=== PATIENT | male | born 1955 | race Caucasian/White ===

== ENCOUNTER 2018-03-23 11:47 | Emergency (ER) | payer MEDICAID ==
[~2018-03-23] VITALS: Ht 182.9 cm; Wt 72.6 kg
--- NOTE | 2018-03-23 12:31 | NUR ---
PT WAS EVALUATED BY DR SAINI. PT WAS D/C'd TO HOME. D/C INSTRUCTIONS GIVEN TO THE PT.
[2018-03-23 12:33] VITALS: BP 145/77
== END 2018-03-23 12:41 | disposition home or self-care (01) ==
LOC: ER 11:47
DX: J06.9 Acute upper respiratory infection, unspecified (principal); N40.0 Benign prostatic hyperplasia without lower urinary tract symptoms
CPT/HCPCS: A4663

== ENCOUNTER 2018-05-29 19:01 | Emergency (ER) | payer MEDICAID ==
[~2018-05-29] VITALS: Ht 182.9 cm; Wt 72.6 kg
[2018-05-29] MEDS ORDERED: TAMS-3 PO (19:07)
[2018-05-29] MEDS ORDERED: OMEP20TA20 PO (19:07)
--- NOTE | 2018-05-29 19:10 | NUR ---
Patient ambulated with stable gait. AAOX4. Speaks clear and in complete sentences. No neuro deficits. Patient came with c/o rt shoulder pain x 1 week, with no stated trauma. Respiratory even and unlabored, no cough no sob, chest symmetry. No cardiovascular distress noted. No GI/Gu distress. Patient in bed at lowest position, side rails upx2, call light within reach. Fall precautions implemented per protocol.
[2018-05-29] MEDS ORDERED: OXYCODONE/APAP 5-325 MG TABLET PO ONE (19:30)
[2018-05-29] MEDS ORDERED: OXYCODONE/APAP 5-325 MG TABLET ONE (19:33)
--- NOTE | 2018-05-29 21:01 | NUR ---
Patient discharged to home in stable conditon. Written and verbal after care instructions given. Patient verbalizes understanding of instructions. Patient ambulated withs table gait. Denies any homelessness.
[2018-05-29 21:02] VITALS: BP 135/97
--- NOTE | 2018-05-29 21:02 | NUR ---
Asked patient if he drove here, and he stated he did not.
== END 2018-05-29 21:03 | disposition home or self-care (01) ==
LOC: ER 19:02
DX: M54.12 Radiculopathy, cervical region (principal); M79.621 Pain in right upper arm; R20.2 Paresthesia of skin; K21.9 Gastro-esophageal reflux disease without esophagitis; Z79.899 Other long term (current) drug therapy
CPT/HCPCS: 72125; A4663

== ENCOUNTER 2019-12-26 02:38 | Emergency (ER) | payer MEDICAID, OTHER ==
[~2019-12-26] VITALS: Ht 182.9 cm; Wt 72.6 kg
[~2019-12-26 02:38] MED LIST: OMEP20TA20 PO; TAMS-3 PO
--- NOTE | 2019-12-26 02:52 | NUR ---
at bedside for assessment
[2019-12-26] MEDS ORDERED: TDAP DIPH,PERTUSS,TET VAC/PF 0.5 ML DISP.SYRIN IM ONE ×2 (02:59→03:00)
[2019-12-26] MEDS ORDERED: LET TOPICAL SOLUTION 8 ML UDC ONE (03:14)
[2019-12-26] MEDS ORDERED: LET TOPICAL SOLUTION 8 ML UDC TP ONE (03:15)
[2019-12-26] MEDS ORDERED: LIDOCAINE HCL 2% 20 ML VIAL TP ONE (03:15)
[2019-12-26] MEDS ORDERED: SODIUM BICARBONATE 4.2 % (NEUT) 5 ML VIAL TP ONE (03:15)
[2019-12-26] MEDS ORDERED: NEOMY/BACITRA/POLYMYXIN B OINT UD PACKET TP ONE ×2 (03:45→03:49)
--- NOTE | 2019-12-26 03:49 | NUR ---
natalia needle removed from patient's left index finger by MD Escamilla, puncture wound soaked in peroxide, awaiting repeat x-ray at this time
[2019-12-26] MEDS ORDERED: CEphaleXIN 500 MG CAPSULE ONE (03:57)
[2019-12-26] MEDS ORDERED: CEphaleXIN 500 MG CAPSULE PO ONE (04:00)
--- NOTE | 2019-12-26 04:07 | NUR ---
Patient discharged to home in stable condition. Patient able to ambulate with steady gait, RX given, instructed to keep puncture area dry and return for any signs of infection, Written and verbal after care instructions given. Patient verbalizes understanding of instructions. Stressed follow up or return to ER for worsening s/s.
[2019-12-26 04:09] VITALS: BP 119/80
== END 2019-12-26 04:08 | disposition home or self-care (01) ==
LOC: ER 02:38
PROC: 0JCK3ZZ Extirpation of Matter from Left Hand Subcutaneous Tissue and Fascia, Percutaneous Approach (ICD-10-PCS; principal; 2019-12-26)
DX: S61.241A Puncture wound with foreign body of left index finger without damage to nail, initial encounter (principal); W27.8XXA Contact with other nonpowered hand tool, initial encounter; Y93.89 Activity, other specified; Y92.89 Other specified places as the place of occurrence of the external cause; K21.9 Gastro-esophageal reflux disease without esophagitis; Z79.899 Other long term (current) drug therapy
CPT/HCPCS: 73140 ×2; 90471; 90715; 99284; J3490 ×2; A4663